=== PATIENT | male | born 1965 | race Caucasian/White ===

== ENCOUNTER 2019-02-11 12:15 | Emergency (ER) | payer MEDICAID | END 2019-02-11 14:05 | disposition home or self-care (01) | LOC: E/R 12:15 | DX: S00.81XA Abrasion of other part of head, initial encounter (principal); F17.210 Nicotine dependence, cigarettes, uncomplicated; R93.0 Abnormal findings on diagnostic imaging of skull and head, not elsewhere classified; W01.0XXA Fall on same level from slipping, tripping and stumbling without subsequent striking against object, initial encounter; Y92.812 Truck as the place of occurrence of the external cause | CPT/HCPCS: 70450; 99284-25 ==